=== PATIENT | male | born 1980 | race Caucasian/White ===

== ENCOUNTER 2022-01-04 12:35 | Emergency (ER) | payer OTHER ==
[~2022-01-04] VITALS: Ht 190.5 cm; Wt 95.3 kg
[2022-01-04 12:37] VITALS: BP 155/96
--- NOTE | 2022-01-04 12:45 | NUR ---
PT W/C ASSISTED TO ER BED 9
[2022-01-04] MEDS ORDERED: MORPHINE SULFATE 4 MG/ML SYR IM ONE (13:35)
[2022-01-04] MEDS ORDERED: ACET-10509 PO (14:45)
[2022-01-04] MEDS ORDERED: TROL10CR TP (14:45)
== END 2022-01-04 15:09 | disposition home or self-care (01) ==
LOC: MED 12:35
DX: S20.211A Contusion of right front wall of thorax, initial encounter (principal); F17.210 Nicotine dependence, cigarettes, uncomplicated; W18.30XA Fall on same level, unspecified, initial encounter; Y93.I9 Activity, other involving external motion; Y92.89 Other specified places as the place of occurrence of the external cause; Y99.8 Other external cause status
CPT/HCPCS: 71101; 96372; 99283; J2270

== ENCOUNTER 2022-01-18 07:48 | Emergency (ER) | payer OTHER ==
[~2022-01-18] VITALS: Ht 190.5 cm; Wt 97.1 kg
[~2022-01-18 07:48] MED LIST: ACET-10509 PO; TROL10CR TP
[2022-01-18 07:51] VITALS: BP 158/101
--- NOTE | 2022-01-18 07:55 | NUR ---
PT PLACED IN LOBBY
[2022-01-18] MEDS ORDERED: IBUPROFEN 600 MG TAB PO ONE (08:20)
--- NOTE | 2022-01-18 08:30 | NUR ---
RAD IN TRIAGE INQUIRING ABOUT PT, PT NOT IN LOBBY. PT ATTEMPTED TO BE CALLED
--- NOTE | 2022-01-18 08:35 | NUR ---
PATIENT LEFT WITHOUT BEING SEEN BY DR. HORNER. NO FURTHER CARE PROVIDED FOR PATIENT.
== END 2022-01-18 08:35 | disposition left against medical advice (07) ==
LOC: MED 07:48
DX: R06.00 Dyspnea, unspecified (principal); M54.50 Low back pain, unspecified; K21.9 Gastro-esophageal reflux disease without esophagitis; F17.200 Nicotine dependence, unspecified, uncomplicated; F15.90 Other stimulant use, unspecified, uncomplicated; Z79.899 Other long term (current) drug therapy; Z71.6 Tobacco abuse counseling; V98.8XXA Other specified transport accidents, initial encounter; Y93.89 Activity, other specified; Y92.89 Other specified places as the place of occurrence of the external cause; Y99.8 Other external cause status
CPT/HCPCS: 99283